=== PATIENT | male | born 2000 | race Caucasian/White ===

== ENCOUNTER → 2019-05-13 20:20 | Emergency (ER) | payer MEDICAID ==
[~2019-05-13 20:20] MED LIST: Ibuprofen TAB* 600 MG PO ONE
--- NOTE | 2019-05-13 21:26 | ED ---
Lower Extremity - History of Current Complaint Chief Complaint: EDExtremityLower Stated Complaint: LT ANKLE INJURY PER PT Time Seen by Provider: 05/13/19 20:47 Pain Intensity: 7 - Allergies/Home Medications Allergies/Adverse Reactions: Allergies Allergy/AdvReac Type Severity Reaction Status Date / Time amoxicillin Allergy Airway Verified 05/13/19 20:28 Obstruction Penicillins Allergy Airway Verified 05/13/19 20:28 Obstruction Home Medications: Home Medications ARIPiprazole TAB* [Abilify TAB*] 10 mg PO DAILY 05/13/19 [History Confirmed ] Buprenorphine HCl/Naloxone HCl [Suboxone 12 mg-3 mg Sl Film] 1 strip PO DAILY [History Confirmed 05/13/19] Escitalopram Oxalate [Lexapro 10 mg] 10 mg PO DAILY 05/13/19 [History Confirmed 05/13/19] busPIRone TAB* [Buspar TAB *] 15 mg PO BID 05/13/19 [History Confirmed 05/13/19] cloNIDine TAB* [Catapres 0.1 MG TAB*] 0.1 mg PO BID 05/13/19 [History Confirmed 05/13/19] levETIRAcetam TAB* [Keppra TAB*] 1,000 mg PO BID 05/13/19 [History Confirmed ] traZODone TAB* [Desyrel TAB*] 150 mg PO BEDTIME 05/13/19 [History Confirmed ] PMH/Surg Hx/FS Hx/Imm Hx Infectious Disease History: No Infectious Disease History: Denies: Traveled Outside the [place] in Last 30 Days - Social History Alcohol Use: None Substance Use Type: Reports: None Substance Use Comment - Amount & Last Used: hx opiod abuse Smoking Status (MU): Former Smoker Physical Exam Vital Signs On Initial Exam: Initial Vitals Temp Pulse Resp BP Pulse Ox 99.2 F 86 18 122/78 95 05/13/19 20:27 05/13/19 20:27 05/13/19 20:27 05/13/19 20:27 05/13/19 20:27 Diagnostics - Vital Signs Vital Signs Temp Pulse Resp BP Pulse Ox 05/13/19 20:27 99.2 F 86 18 122/78 95 - Laboratory Lab Statement: Any lab studies that have been ordered have been reviewed, and results considered in the medical decision making process. Lower Extremity Course/Dx - Diagnoses Provider Diagnoses: Foot sprain Discharge - Sign-Out/Discharge Documenting (check all that apply): Patient Departure Patient Received Moderate/Deep Sedation with Procedure: No - Discharge Plan Condition: Stable Disposition: HOME Patient Education Materials: Foot Sprain (ED) Referrals: No Primary Care Phys,NOPCP [Primary Care Provider] - Sergio Lawton MD [Medical Doctor] - Additional Instructions: Ice rest and ibuprofen for left foot pain. Weightbearing as tolerated. If symptoms do not improve within a week follow-up with orthopedics Dr. Lawton for further evaluation. Return to the ED for any new or worsening symptoms. - Billing Disposition and Condition Condition: STABLE Disposition: Home
[2019-05-13 21:41] VITALS: BP 105/48
== END | disposition home or self-care (01) ==
LOC: ED 20:20
DX: S93.602A Unspecified sprain of left foot, initial encounter (principal); X58.XXXA Exposure to other specified factors, initial encounter; Z79.899 Other long term (current) drug therapy; Z87.891 Personal history of nicotine dependence
CPT/HCPCS: 99282; A9270-GY

== ENCOUNTER 2019-05-16 20:07 | Emergency (ER) | payer MEDICAID ==
[2019-05-16] MEDS ORDERED: Ibuprofen TAB* 600 MG PO ONE (21:06)
[2019-05-16] MEDS ORDERED: traZODone TAB* 50 MG TAB PO ONE (23:17)
[2019-05-16] MEDS ORDERED: levETIRAcetam TAB* 500 MG PO ONE (23:17)
[2019-05-16] MEDS ORDERED: busPIRone TAB* 5 MG PO ONE (23:18)
[2019-05-16] MEDS ORDERED: Ondansetron ODT TAB* 4 MG PO ONE (23:36)
--- NOTE | 2019-05-16 23:36 | ED ---
Adult Trauma - HPI Summary HPI Summary: Patient complains of head injury after running into a tree while chasing Frisbee. Complains of headache, multiple episodes of nausea or vomiting, blurry vision, lightheadedness, neck pain, right shoulder pain. Denies any other pain injury or symptoms, LOC, amnesia, altered mental status. Patient ambulatory. Medical history is seizures. - History of Current Complaint Chief Complaint: EDHeadInjury Stated Complaint: HEAD INJURY AFTER RUNNING INTO TREE PER EMS Time Seen by Provider: 05/16/19 20:51 Hx Obtained From: Patient Mechanism of Injury: Blunt Trauma Ambulatory at the Scene: Yes Loss of Consciousness: no loss of consciousness Onset of Pain: Immediate Onset Severity: Severe Current Severity: Severe Pain Intensity: 9 Pain Scale Used: 0-10 Numeric Location: Head Character: Dull Aggravating Factor(s): Nothing Alleviating Factor(s): Nothing Associated Signs & Symptoms: Positive: Nausea/Vomiting - Allergy/Home Medications Allergies/Adverse Reactions: Allergies Allergy/AdvReac Type Severity Reaction Status Date / Time amoxicillin Allergy Airway Verified 05/13/19 20:28 Obstruction Penicillins Allergy Airway Verified 05/13/19 20:28 Obstruction PMH/Surg Hx/FS Hx/Imm Hx Endocrine/Hematology History: Denies: Hx Anticoagulant Therapy Cardiovascular History: Denies: Hx Pacemaker/ICD History: Denies: Hx Dialysis Sensory History: Denies: Hx Eye Prosthesis Opthamlomology History: Denies: Hx Legally Blind EENT History: Denies: Hx Deafness Neurological History: Denies: Hx Developmental Delay Psychiatric History: Denies: Hx Autism - Immunization History Immunizations Up to Date: Yes Infectious Disease History: No Infectious Disease History: Denies: Traveled Outside the [place] in Last 30 Days - Family History Known Family History: Positive: Non-Contributory - Social History Alcohol Use: None Substance Use Type: Reports: None Substance Use Comment - Amount & Last Used: hx opiod abuse Smoking Status (MU): Former Smoker Review of Systems Constitutional: Negative Positive: Blurred Vision ENT: Negative Cardiovascular: Negative Positive: Vomiting, Nausea Genitourinary: Negative Musculoskeletal: Negative Skin: Negative Positive: Headache Psychological: Normal All Other Systems Reviewed And Are Negative: Yes Physical Exam - Summary Physical Exam Summary: Neuro exam normal. Full range of motion of right shoulder. Abrasion to right shoulder. PMS intact distally. Full range of motion of jaw and neck. No trauma noted to mouth, face, head. No pain with palpation of neck, back, chest , abdomen. Patient moving all 4 extremities freely. Abdomen soft nontender. Triage Information Reviewed: Yes Vital Signs On Initial Exam: Initial Vitals Temp Pulse Resp BP Pulse Ox 98.0 F 86 18 124/60 96 05/16/19 20:35 05/16/19 20:35 05/16/19 20:35 05/16/19 20:35 05/16/19 20:35 Appearance: Positive: Well-Appearing Skin: Positive: Warm Head/Face: Positive: Normal Head/Face Inspection Eyes: Positive: Normal ENT: Positive: Normal ENT inspection Dental: Negative: Dental Fracture @, Bleeding Neck: Positive: Supple Respiratory/Lung Sounds: Positive: Clear to Auscultation Cardiovascular: Positive: Normal Abdomen Description: Positive: Nontender Musculoskeletal: Positive: Normal Neurological: Positive: Normal Psychiatric: Positive: Normal AVPU Assessment: Alert - Monica Coma Scale Best Eye Response: 4 - Spontaneous Best Motor Response: 6 - Obeys Commands Best Verbal Response: 5 - Oriented Coma Scale Total: 15 Diagnostics - Vital Signs Vital Signs Temp Pulse Resp BP Pulse Ox 05/16/19 20:35 98.0 F 86 18 124/60 96 - Laboratory Lab Statement: Any lab studies that have been ordered have been reviewed, and results considered in the medical decision making process. Adult Trauma Course/Dx - Course Course Of Treatment: Patient complains of head injury after running into a tree while chasing Frisbee. Complains of headache, multiple episodes of nausea or vomiting, blurry vision, lightheadedness, neck pain, right shoulder pain. Denies any other pain injury or symptoms, LOC, amnesia, altered mental status. Patient ambulatory. Medical history is seizures. Vital signs within normal limits. CT brain unremarkable. X-ray right shoulder unremarkable. CT cervical spine unremarkable. - Diagnoses Provider Diagnoses: Head injury, Concussion, Shoulder pain, acute Discharge - Sign-Out/Discharge Documenting (check all that apply): Patient Departure Patient Received Moderate/Deep Sedation with Procedure: No - Discharge Plan Condition: Stable Disposition: HOME Patient Education Materials: Concussion (ED), Head Injury (ED), Shoulder Pain ( ED) Referrals: No Primary Care Phys,NOPCP [Primary Care Provider] - Additional Instructions: Symptoms of concussion are likely to come and go over the course of the next few weeks, but should gradually improve. Do not engage in contact sports or any activity that may have risk of repeat head injury until cleared by primary care. Tylenol or ibuprofen for headache. Ice, ibuprofen and rest for right shoulder pain. If left shoulder pain does not improve within a week follow-up with orthopedics Dr. Cisneros for further evaluation. Return to the ED for any new or worsening symptoms. - Billing Disposition and Condition Condition: STABLE Disposition: Home
[2019-05-16 23:51] VITALS: BP 124/66
== END 2019-05-16 23:50 | disposition home or self-care (01) ==
LOC: ED 20:07
DX: S06.0X9A Concussion with loss of consciousness of unspecified duration, initial encounter (principal); M25.511 Pain in right shoulder; Z87.891 Personal history of nicotine dependence; W22.09XA Striking against other stationary object, initial encounter
CPT/HCPCS: 70450; 72125; 99282; A9270-GY